=== PATIENT | male | born 1935 | race Caucasian/White ===

== ENCOUNTER 2016-11-02 10:25 | Day surgery (SDC) | payer MEDICARE, BC ==
[2016-11-02] MEDS ORDERED: ACETAZOLAMIDE 500 MG CER ONE (10:33)
[2016-11-02] MEDS: PROPARACAINE HCL 0.5% OPHTHALMIC SOL ONE ×3 (10:51→11:52)
[2016-11-02] MEDS: PHENYLEPHRINE HCL 10% OPHTHAL SOL ONE ×2 (10:52→11:06)
[2016-11-02] MEDS: CYCLOPENTOLATE 1% SOL ONE ×2 (10:53→11:07)
[2016-11-02] MEDS ORDERED: MIDAZOLAM 2 MG/2 ML SOL ONE (11:13)
[2016-11-02] MEDS ORDERED: POVIDONE IODINE 5% SOL ONE (11:45)
[2016-11-02] MEDS ORDERED: LIDOCAINE HCL 1% MPF SOL ONE (11:45)
[2016-11-02] MEDS ORDERED: BSS 500 ML 500 ML IR ONE (11:45)
[2016-11-02 12:35] VITALS: BP 127/55; PULSE 57; RESP 20; TEMP 97.6; O2SAT 97
== END 2016-11-02 12:55 | disposition home or self-care (01) | DRG 125 ==
LOC: SURG 10:25
PROVIDERS: ATTEND Ophthalmology
DX: H25.9 Unspecified age-related cataract (principal); H40.10X0 Unspecified open-angle glaucoma, stage unspecified
CPT/HCPCS: 0191T; 66984; J2250; C1783; J2001

== ENCOUNTER 2016-11-30 08:01 | Day surgery (SDC) | payer MEDICARE, BC ==
[2016-11-30] MEDS ORDERED: ACETAZOLAMIDE 500 MG CER ONE (08:09)
[2016-11-30] MEDS ORDERED: PROPARACAINE HCL 0.5% OPHTHALMIC SOL ONE (08:09)
[2016-11-30] MEDS ORDERED: CYCLOPENTOLATE 1% SOL ONE (08:09)
[2016-11-30] MEDS ORDERED: PHENYLEPHRINE HCL 10% OPHTHAL SOL ONE (08:10)
[2016-11-30] MEDS ORDERED: MIDAZOLAM 2 MG/2 ML SOL ONE (08:14)
[2016-11-30] MEDS ORDERED: ACETAZOLAMIDE 500 MG CER PO ONE (08:26)
[2016-11-30] MEDS: PHENYLEPHRINE HCL 10% OPHTHAL SOL LEFTEYE ONE ×2 (08:30→08:46)
[2016-11-30] MEDS ORDERED: LIDOCAINE HCL 1% MPF SOL ONE (08:30)
[2016-11-30] MEDS ORDERED: POVIDONE IODINE 5% SOL ONE (08:30)
[2016-11-30] MEDS: PROPARACAINE HCL 0.5% OPHTHALMIC SOL LEFTEYE ONE ×3 (08:30→09:02)
[2016-11-30] MEDS ORDERED: BSS 500 ML 500 ML IR ONE (08:30)
[2016-11-30] MEDS: CYCLOPENTOLATE 1% SOL LEFTEYE ONE ×2 (08:31→08:47)
[2016-11-30 09:33] VITALS: BP 143/61; PULSE 54; RESP 20; TEMP 97.4; O2SAT 99
== END 2016-11-30 09:56 | disposition home or self-care (01) | DRG 125 ==
LOC: SURG 08:01
PROVIDERS: ATTEND Ophthalmology
DX: H25.9 Unspecified age-related cataract (principal); E11.9 Type 2 diabetes mellitus without complications; H40.10X0 Unspecified open-angle glaucoma, stage unspecified; Z79.4 Long term (current) use of insulin
CPT/HCPCS: 0191T; 66984; 82962; J2250; C1783; J2001